=== PATIENT | female | born 1985 | race Caucasian/White ===

== ENCOUNTER → 2022-02-10 13:53 | Outpatient (ROUT) | payer OTHER, SELFPAY ==
[2022-02-10 16:49] LABS: COVID-19 CEPHEID PCR (VTM/NP) Negative (Negative)
== END ==
PROVIDERS: PCP Family Medicine; Visit Provider Otolaryngology
DX: J35.01 Chronic tonsillitis (principal); J35.8 Other chronic diseases of tonsils and adenoids; R07.0 Pain in throat; J98.8 Other specified respiratory disorders; J35.1 Hypertrophy of tonsils; Z20.822 Contact with and (suspected) exposure to COVID-19
CPT/HCPCS: U0003; U0005

== ENCOUNTER 2022-02-12 08:41 | Day surgery (SDC) | payer OTHER, SELFPAY ==
[2022-02-09 14:41] VITALS: BMI 28.1
[2022-02-12] VITALS (7 sets, daily range): BP systolic 115–136; BP diastolic 78–92; PULSE 73–93; RESP 13–16; TEMP 36.6–36.7; O2SAT 97–100; BMI 28.1
[2022-02-12] MEDS: LACTATED RINGERS 1,000 ML 42 ML IV (09:40)
--- NOTE | 2022-02-12 10:07 | PM.PREOP ---
Pre-operative Note Interval Note History & Physical reviewed/Exam performed by Physician: Yes Changes to H&P: No
--- NOTE | 2022-02-12 10:08 | PM.HP.1 ---
History of Present Illness History of Present Illness Date Patient Seen: 02/12/22 Time Patient Seen: 10:08 Chief complaint: TONSILLECTOMY & POSS ADENOIDECTOMY Narrative: 35-year-old female last seen in clinic 09/03/2021 with complaints of chronic tonsillitis with stones, throat pain, globus sensation, respiratory obstruction and tonsillar hypertrophy, presents for tonsillectomy and possible adenoidectomy. No interval health changes. Patient History Medical History Chronic tonsillitis COVID-19 virus infection (05/2021) Globus sensation Headache Respiratory obstruction Throat pain Thyroid disease Tonsil stone Tonsillar hypertrophy Surgical History History of tonsillectomy and adenoidectomy (1995) Hx of knee surgery (~2003) Hx of myringotomy Family & Social History Social History: household members spouse Tobacco & Substance use: Smoking Status Never smoker alcohol intake former Substance Use Type does not use Meds Home Medications and Allergies Home Medications Medication Instructions Recorded Confirmed Type No Known Home Medications 02/09/22 02/09/22 History Allergies Allergy/AdvReac Type Severity Reaction Status Date / Time acetaminophen Allergy Severe Swelling Verified 02/12/22 09:29 of Lip/Tongue/Throat diphtheria, pertussis, Allergy Severe Swelling Verified 02/12/22 09:29 tetanus vacc of Lip/Tongue/Throat Iodinated Contrast Media Allergy Severe Swelling Verified 02/12/22 09:29 of Lip/Tongue/Throat promethazine [From Phenergan] AdvReac Severe Hallucinati Verified 02/12/22 09:40 ng prednisone AdvReac Verified 02/12/22 09:25 Review of Systems Review of Systems Narrative: Negative except as listed in the HPI Exam Vital Signs (past 8 hours): - 02/12/22 09:31 Temperature 97.9 F Pulse Rate 84 Respiratory Rate 16 Blood Pressure 136/91 H Pulse Oximetry 100 Oxygen Delivery Method Room Air Oxygen Delivery Method Room Air Narrative Exam Narrative: Well-developed well-nourished female in no acute distress. Heart regular rate and rhythm without murmur, lungs clear to auscultation bilaterally Assessment & Plan Assessment & Plan narrative: Assessment: Chronic tonsillitis, tonsil stone, throat pain, globus sensation, respiratory obstruction, tonsillar hypertrophy Plan: Following discussion of the material risks benefits complications and alternatives, the patient elected to proceed with tonsillectomy and possible adenoidectomy as outpatient. Time Spent With Patient Critical Care time: I spent a total of [] minutes of critical care time on this patient's care today; this time is exclusive of procedural time.
--- NOTE | 2022-02-12 10:09 | PM.OP.1 ---
Operative Date/Time/Diagnoses Date of procedure: 02/12/22 Time of procedure: 11:39 Pre-op diagnosis: Chronic tonsillitis with stones, throat pain, globus sensation respiratory obstruction and tonsillar hypertrophy Post-op diagnosis: same Procedure & Clinicians Procedure: Tonsillectomy Same procedure as scheduled: Yes Indications: 35-year-old female with the above diagnoses incompletely managed with medical therapy presents for the above procedure. Following discussion of the material risks benefits complications and alternatives, she elected to proceed. Surgeon: Oswald Jefferson Click Yes if Unassisted: Yes Anesthesia Type: General and Local Operative Notes Findings: 2 to 3+ tonsils, absent adenoids, intact palate, single uvula Procedure in detail: Following identification and confirmation of consent the patient was brought to the operating room suite and placed in the supine position. General endotracheal anesthesia was administered. A head wrap, shoulder roll, and mouth gag were placed and a red rubber catheter was inserted through the nostril and out the mouth to retract the soft palate. No significant adenoid tissue present, evidence of prior surgery. The left tonsil was retracted medially and needle-tip electrocautery on a setting of 12 was used to dissect the tonsil in a subcapsular plane. Hemostasis with suction electrocautery on 20 was obtained. This process was repeated on the right side with identical findings. The tonsillar fossa were superficially infiltrated bilaterally with a 1 1 mixture of 1% lidocaine and 0.5% Marcaine 1 to [id number] epinephrine. Mouth gag and rubber catheter were removed and the patient was extubated in the operating room and taken to the recovery room in stable condition without known complication. Complications: none Post-operative Condition: stable Disposition: same day surgery Plan for aftercare: Push fluids, alternate Tylenol and Advil every 3 hours for baseline pain control, oxycodone for breakthrough pain. Soft diet 2 full weeks, no heavy lifting or straining 2 weeks.
--- NOTE | 2022-02-12 11:25 | SUR.OPER ---
Supine on padded OR bed, head on pillow, arms secured on padded arm boards at <90 degrees abduction, legs uncrossed, safety belt at thigh, tape over blanket over lower legs.
[2022-02-12] MEDS: BUPIVACAINE 0.5% W/ EPI (PF) 30 ML VIAL INJ (11:27)
[2022-02-12] MEDS: LIDOCAINE 1% (PF) 5 ML INJ (11:28)
[2022-02-12] MEDS: OXYCODONE IR 5 MG TABLET PO (12:10)
[2022-02-12] MEDS: BENZOCAINE/MENTHOL 1 LOZ PKT 1 EACH PO (12:19)
== END 2022-02-12 12:41 | disposition home or self-care (01) ==
PROVIDERS: PCP Family Medicine; Referring Provider Otolaryngology; Visit Provider Otolaryngology
PROC: (CPT 42826; principal; 2022-02-12 10:45)
DX: J35.01 Chronic tonsillitis (principal); J35.8 Other chronic diseases of tonsils and adenoids
CPT/HCPCS: 42826; 81025; J1100; J2250; J2405; J2704; J3010

== ENCOUNTER → 2022-04-10 08:14 | Outpatient (CLI) | payer OTHER, SELFPAY ==
--- NOTE | 2022-04-10 08:15 | DI.MG.S_ITS ---
BILATERAL DIGITAL DIAGNOSTIC MAMMOGRAM 3D/2D: 04/10/2022 CLINICAL: Pt states has had pain in right axilla for 6 yrs. for the last 2 months it has radiated to lateral breast and nipple area. No other breast sx. pt states she finished breast feeding 1 yr. ago. No prior exams were available for comparison. Both breasts are heterogeneously dense, which may obscure small masses (category c / 51-75% glandular tissue). No significant masses, calcifications, or other findings are seen in either breast. Specifically, no finding to explain the patient's right axillary and upper outer quadrant breast pain. IMPRESSION: INCOMPLETE: NEEDS ADDITIONAL IMAGING EVALUATION There is no abnormality seen in the right breast or in the right axilla to correspond with the pain in the upper outer quadrant and in the right axilla. This is likely due to hormonal stimulation, however ultrasound is recommended for full evaluation of this area per standards. This could not be performed today and will be scheduled for the patient prior to her leaving the department. Findings and recommendations conveyed to the patient at time of exam. Based on the Tyrer Cuzick model (a risk assessment model) the patient's lifetime risk is 13.8% and her 10 year risk is 0.9%. According to the ACR, ACS, and NCCN guidelines, an annual breast MRI exam along with mammogram is recommended if the patient's lifetime risk is 20% or greater. This exam was interpreted at Station ID: [id number]. NOTE: For mammograms, a report in lay terms will be sent to the patient. Approximately 15% of breast malignancies will not be visualized mammographically. In the management of a palpable breast mass, a negative mammogram must not discourage biopsy of a clinically suspicious lesion. Electronically Signed By: Lorraine torres/:04/10/2022 08:55:43 ACR BI-RADS Category 0: Incomplete 3340F
== END ==
PROVIDERS: PCP Family Medicine; Referring Provider Physician Assistant; Visit Provider Physician Assistant
DX: N64.4 Mastodynia (principal); M79.621 Pain in right upper arm; R92.2 Inconclusive mammogram
CPT/HCPCS: 77066; G0279

== ENCOUNTER → 2022-04-14 08:01 | Outpatient (CLI) | payer OTHER, SELFPAY ==
--- NOTE | 2022-04-14 | DI.US.S_ITS ---
ULTRASOUND OF RIGHT BREAST: 04/14/2022 CLINICAL: Diffuse right breast/axillary pain x 6 years. Comparison is made to exam dated: 04/10/2022 mammogram - [facility]. Real-time ultrasound of the right breast was performed. Miller scale images of the real-time examination were reviewed. No significant abnormalities were seen sonographically in the right breast. IMPRESSION: NEGATIVE There is no sonographic evidence of malignancy. There are no abnormalities seen in the right breast or in the right axilla to correspond with the areas of clinical concern at 6, 9, and 10 o'clock and in the right axilla which likely represent normal fibroglandular tissue, however, clinical correlation and clinical followup are recommended. Patient was advised to return for followup imaging if symptoms worsen or if there is a discrete palpable abnormality. This exam was interpreted at Station ID: [id number]. Electronically Signed By: Derrek Bernardo M.D. lc/:04/14/2022 08:53:02 letter sent: Clinical Evaluation Ultrasound BI-RADS: 1 Negative
== END ==
PROVIDERS: PCP Family Medicine; Referring Provider Family Medicine; Visit Provider Family Medicine
DX: N64.4 Mastodynia (principal)
CPT/HCPCS: 76642